=== PATIENT | female | born 1995 | race Caucasian/White ===

== ENCOUNTER 2021-02-07 10:27 | Emergency (ER) | payer OTHER, SELFPAY ==
[2021-02-07 10:44] VITALS: BP 130/78; PULSE 104; RESP 16; TEMP 36.7; O2SAT 99
--- NOTE | 2021-02-07 10:52 | ED.URI ---
HPI - URI/Sore Throat General Chief Complaint: Upper Respiratory Infection Stated Complaint: sore throat, ear pain Time Seen by Provider: 02/07/21 10:52 Source: patient and RN notes reviewed Mode of arrival: ambulatory Limitations: no limitations History of Present Illness HPI Narrative: 26-year-old female presents to the [facility] with complaints of a sore throat and ear pain for the last 5 days. Has taken Claritin No other treatment prior to arrival. States she is approximately 20 weeks . Related Data Allergies Allergy/AdvReac Type Severity Reaction Status Date / Time No Known Allergies Allergy Unverified 06/24/18 16:05 Review of Systems Review of Systems: All systems reviewed & are unremarkable except as noted in HPI and below Constitutional: Constitutional: Reports no additional constitutional complaints, Denies chills and Denies fever(s) Eyes: Eyes: Reports no additional eye complaints and Denies change in vision ENT: Reports as per HPI and Reports sore throat Cardiovascular: Cardiovascular: Reports no additional cardiovascular complaints, Denies chest pain and Denies radiating jaw, neck or arm pain Respiratory: Respiratory: Reports no additional respiratory complaints, Denies cough and Denies dyspnea Gastrointestinal: Gastrointestinal: Reports no additional gastrointestinal complaints, Denies abdominal pain and Denies nausea Genitourinary: Genitourinary: Reports no additional female genitourinary complaints Musculoskeletal: Musculoskeletal: Reports no additional musculoskeletal complaints Integumentary/Breasts: Skin/Breast: Reports system reviewed and no additional complaints, except as docu Neurologic: Reports system reviewed and no additional complaints, except as documented Psychiatric: Psychiatric: Reports no additional psychiatric complaints Allergic/Immunologic: Allergic/Immunologic: Reports no additional allergic/immunologic complaints [facility] Past Medical History Medical History (Updated 02/07/21 @ 19:39 by Tabby Coleman) No significant medical problems Surgical History Surgical History (Updated 02/07/21 @ 19:39 by Tabby Coleman) No significant past surgical history Social History Social History (Updated 02/07/21 @ 19:39 by Tabby Coleman) Living arrangements: with family Gender identity (if verbalized by the patient): Female Comments At the time of my signature, I reviewed and agree with the nursing past medical, surgical, social, and family history. There is no relevant family history pertinent to the patient complaint. Exam Const: General: healthy appearing, no acute distress and alert Nutritional Appearance: well nourished Orientation/consciousness: patient oriented x3 Limitations: no limitations HENMT: Head: normal to inspection Ears: external ears normal, TM's normal bilaterally and EAC's normal General nose exam: Normal external nose present, Normal nares present and Normal nasal mucous membranes and turbinates present Face and sinus: normal facial exam Mouth: Yes moist mucous membranes Throat: posterior oropharynx normal, uvula midline and postnasal drainage Eyes: Conjunctivae: conjunctivae normal Pupils: Equal, round and reactive pupils present Neck: Neck: normal visual inspection, no lymphadenopathy and no meningeal signs Resp: Effort & Inspection: normal respiratory effort Auscultation: clear to auscultation bilaterally Cardio: Rate: regular rate Rhythm: regular rhythm GI: GI Palp: Yes Soft to palpation and No Tenderness to palpation present (GI) : General: Yes no CVA tenderness Back/Spine/Pelvis: Back: no CVA tenderness Skin: General skin exam: normal color Rashes: no rashes Neuro: General: patient oriented x3, moves all extremities, no meningeal signs and no focal motor deficits Cranial nerves: Yes Nystagmus not present Speech: normal speech Gait exam (Neuro): Normal gait present Extrem: General: normal to inspection and no pedal ed
== END 2021-02-07 11:42 | disposition home or self-care (01) ==
PROVIDERS: Emergency Provider Nurse Practitioner
DX: R09.82 Postnasal drip (principal); J02.9 Acute pharyngitis, unspecified
CPT/HCPCS: 87081; 87880; 99213; G0463

== ENCOUNTER 2022-01-04 09:04 | Emergency (ER) | payer OTHER, SELFPAY ==
[2022-01-04 09:06] VITALS: BP 126/73; PULSE 72; RESP 14; TEMP 36.4; O2SAT 100
--- NOTE | 2022-01-04 09:06 | ED.URI ---
HPI - URI/Sore Throat General Stated Complaint: Sore Throat Time Seen by Provider: 01/04/22 09:06 Source: patient Mode of arrival: ambulatory Limitations: no limitations History of Present Illness HPI Narrative: Ms. Dunn is a 26-year-old female patient presenting to the clinic today with complaints of sore throat x1 day. She brought her son into the clinic today and he tested positive for strep pharyngitis. Mother denies any fever at this time. She also reports her other child has a sore throat as well. She is currently -6 to 8 weeks. MD elicited complaint: sore throat Related Data Allergies Allergy/AdvReac Type Severity Reaction Status Date / Time No Known Allergies Allergy Unverified 06/24/18 16:05 Review of Systems Review of Systems: Pertinent positives per HPI. Patient denies any fever, chills, rash, headache, visual changes, dizziness, cough, shortness of breath, chest pain, palpitations, nausea, vomiting, diarrhea, constipation, abdominal pain, or any urinary issues. PMFSH Past Medical History Medical History No significant medical problems Surgical History Surgical History No significant past surgical history Social History Social History Gender identity (if verbalized by the patient): Female Comments At the time of my signature, I reviewed and agree with the nursing past medical, surgical, social, and family history. There is no relevant family history pertinent to the patient complaint. Exam Narrative: General: Well-developed, well nourished, in no apparent distress Head: Normocephalic, atraumatic Eyes: Pupils equally round and reactive to light bilaterally, EOM intact, sclera and conjunctive clear, no discharge, lids normal Ears: TMs intact and clear, ear canals ceruminous, no drainage, grossly hearing normal. Nose: Nares patent, no discharge, no inflammation, no sinus tenderness. Mouth: Oral pharynx without lesions or masses, good dentition, MMM. Oropharynx red Neck: Supple, trachea midline, mild enlargement of anterior cervical nodes, no thyroid masses or goiter palpable. Cardio: Regular rate and rhythm, s1 and s2 normal, no murmur appreciated. Resp: Clear to auscultation bilaterally, no rhonchi, rales, wheezing or rubs Course Course Emergency Course: Portions of this record may have been created with voice recognition software. Level of Care: Express Care Visit Vital Signs Vital signs: Vital signs reviewed MDM - URI/Sore Throat MDM Narrative Medical decision making narrative: At the time of visit patient is resting comfortably on the exam table. She is complaining of sore throat and her oropharynx is red. Son tested positive for strep in the clinic today so I will empirically treat her for strep as well. Prescription for amoxicillin was sent to the pharmacy. She voiced understanding of discharge instructions and agrees to treatment plan Differential Diagnosis Differential diagnosis: Likely upper respiratory infection, otitis media, sinusitis, viral infection, bronchitis, influenza, pharyngitis and other (COVID) Discharge Plan Discharge Clinical Impression: Exposure to group A Streptococcus Pharyngitis Qualifiers: Pharyngitis/tonsillitis etiology: unspecified etiology Qualified Code(s): J02.9 - Acute pharyngitis, unspecified Patient Disposition: Home, Self-Care Condition: Stable Instructions: Antibiotic Form, Pharyngitis (ED) Additional Instructions: Take prescription medications only as prescribed-amoxicillin Increase fluids and stay well hydrated Tylenol for pain/fever Flonase and OTC antihistamines as directed Vicks vapor rub to open sinuses Sinus rinses for congestion Cepacol spray, cough drops, throat lozenges, warm tea with honey/lemon, gargle salt wa
== END 2022-01-04 09:20 | disposition home or self-care (01) ==
PROVIDERS: Emergency Provider Nurse Practitioner Family
DX: J02.9 Acute pharyngitis, unspecified (principal); Z20.818 Contact with and (suspected) exposure to other bacterial communicable diseases
CPT/HCPCS: 99213; G0463

== ENCOUNTER 2022-02-03 12:35 | Emergency (ER) | payer OTHER, SELFPAY ==
[2022-02-03 12:40] VITALS: BP 116/76; PULSE 86; RESP 14; TEMP 36.6; O2SAT 100
--- NOTE | 2022-02-03 13:00 | ED.URI ---
HPI - URI/Sore Throat General Chief Complaint: Upper Respiratory Infection Stated Complaint: Sore Throat Time Seen by Provider: 02/03/22 13:00 History of Present Illness HPI Narrative: Patient presents with burning with urination. Patient also has a sore throat and states both of her children at home are positive for strep. Patient has no fever no trouble swallowing. Patient is 3 months and denies any vaginal discharge, no vaginal bleeding, no abdominal pain no pelvic pain. Patient states she has normal movement and no -related issues. Related Data Home Medications Medication Instructions Recorded Confirmed vitamin-ferrous fumarate 1 tablet PO DAILY 02/03/22 02/03/22 28 mg iron-folic acid 800 mcg tablet ( Tablet) Allergies Allergy/AdvReac Type Severity Reaction Status Date / Time No Known Allergies Allergy Verified 02/03/22 12:55 Review of Systems Review of Systems: CONSTITUTIONAL: Denies fever, chills, or sweats. EYES: Denies visual changes, redness, or discharge. ENT: Denies rhinorrhea, congestion, sore throat, or otalgia. CARDIOVASCULAR: Denies chest pain, palpitations, or edema. RESPIRATORY: Denies cough or dyspnea. GASTROINTESTINAL: Denies abdominal pain, nausea, vomiting, or diarrhea. GENITOURINARY: Denies dysuria or hematuria. SKIN: Denies rash or itching. MUSCULOSKELETAL: Denies back pain, joint pain, or myalgia. NEUROLOGIC: Denies headache, numbness, or weakness. PSYCHIATRIC: Denies anxiety or depression. PMFSH Past Medical History Medical History No significant medical problems Surgical History Surgical History No significant past surgical history Social History Social History Gender identity (if verbalized by the patient): Female Comments At time of signature, agree with nursing past medical, surgical, social and family history. There is no relevant family history pertinent to the presenting complaint Exam Narrative: The patient is a well-developed, well-nourished in no acute distress. SKIN: Skin is warm and dry without erythema, swelling or exudate. There is good turgor. No tenting. HEAD: Atraumatic. Normocephalic. No temporal or scalp tenderness. EYES: Moist and bright. Sclera and conjunctivae normal. No discharge. PERRLA. Extraocular motions intact. Gross visual acuity intact. EARS: Pinna is normal shape and contour. Clear external auditory canals. TM pearly cadet with good cone of light, no erythema or suppuration. Bilateral cerumen noted no gross hearing deficit. NOSE: pink, moist mucosa with good air movement. Clear rhinorrhea without nasal flaring. Septum midline. Mouth: moist mucous membranes. THROAT; mild erythema noted to posterior oropharynx with moderate postnasal drainage. Without exudate or ulceration.. Uvula midline. Normal movement of soft palate. NECK: Supple and nontender with full range of motion without discomfort. No meningeal signs. LUNGS: Equal and bilateral breath sounds without wheezes, rales or rhonchi. CHEST: The chest wall is without retractions or use of accessory muscles. HEART: Has a regular rate and rhythm without murmur, gallops, click or rub. ABDOMEN: Soft, nontender with positive active bowel sounds. No rebound tenderness. EXTREMITIES: Without cyanosis, clubbing or edema. Equal 2+ distal pulses and 2 second capillary refill noted. NEUROLOGIC: alert, active, . The patient moves all extremities with normal muscle strength. Normal muscle tone is noted. Normal coordination is noted. NO focal neurological findings noted. Course Course Level of Care: Express Care Visit Vital Signs Vital signs: Vital Signs Temperature 36.6 C 02/03/22 12:40 Pulse Rate 86 02/03/22 12:40 Respiratory Rate 14 02/03/22 12:40 Blood Pressure 116/7
== END 2022-02-03 13:08 | disposition home or self-care (01) ==
PROVIDERS: Emergency Provider Nurse Practitioner Family
DX: O99.511 Diseases of the respiratory system complicating pregnancy, first trimester (principal); Z3A.12 12 weeks gestation of pregnancy; J02.9 Acute pharyngitis, unspecified; O99.891 Other specified diseases and conditions complicating pregnancy; R30.0 Dysuria; Z20.818 Contact with and (suspected) exposure to other bacterial communicable diseases
CPT/HCPCS: 81003; 87081; 87086; 87880; 99213; G0463

== ENCOUNTER 2022-05-16 09:47 | Emergency (ER) | payer OTHER, SELFPAY ==
--- NOTE | 2022-05-16 10:01 | ED.URI ---
HPI - URI/Sore Throat General Chief Complaint: Upper Respiratory Infection Stated Complaint: Sore Throat/Cough Time Seen by Provider: 05/16/22 10:01 Source: patient and RN notes reviewed History of Present Illness HPI Narrative: Patient is a 27-year-old female presents to urgent care with complaints of sore throat, cough, runny nose and ear pressure. Patient states it started yesterday and her son at home is positive for strep throat. Patient is 30 weeks . Denies any fever, nausea or vomiting. The patient is not taking anything [id number] for her symptoms. No other acute complaints. No acute distress noted. Patient aware of the plan of care. Some parts of this dictation were generated by voice recognition software and may contain typographical and/or grammatical inaccuracies. Related Data Allergies Allergy/AdvReac Type Severity Reaction Status Date / Time No Known Allergies Allergy Verified 05/16/22 10:03 Review of Systems Review of Systems: CONSTITUTIONAL: Denies fever, chills, or sweats. EYES: Denies visual changes, redness, or discharge. ENT: Reports congestion, rhinorrhea, sore throat bilateral otalgia CARDIOVASCULAR: Denies chest pain, palpitations, or edema. RESPIRATORY: Reports mild cough without dyspnea GASTROINTESTINAL: Denies abdominal pain, nausea, vomiting, or diarrhea. GENITOURINARY: Denies dysuria or hematuria. SKIN: Denies rash or itching. MUSCULOSKELETAL: Denies back pain, joint pain, or myalgia. NEUROLOGIC: Denies headache, numbness, or weakness. All other systems reviewed are negative, except as documented in HPI. [facility] Past Medical History Medical History No significant medical problems Surgical History Surgical History No significant past surgical history Social History Social History Living arrangements: with family Gender identity (if verbalized by the patient): Female Comments At the time of my signature, I reviewed and agree with the nursing past medical, surgical, social, and family history. There is no relevant family history pertinent to the patient complaint. Exam Narrative: GENERAL: This is a well-nourished, well-developed patient, in no apparent distress. HEAD: normocephalic, atraumatic. EYES: PERRL. Sclera clear/white. Vision is grossly intact. EARS: External ears normal, auditory canals clear and without drainage, TMs normal without perforation. Hearing grossly intact. NOSE: External nose normal with no obvious nasal discharge, nares without redness, clear rhinorrhea. THROAT: Mucous membranes moist, posterior pharynx clear. Moderate postnasal drainage NECK: Neck supple, non-tender without lymphadenopathy CARDIOVASCULAR: Regular rate and rhythm RESPIRATORY: Clear to auscultation. Breath sounds equal bilaterally. No wheezes, rales, or rhonchi. SKIN: warm, intact with no suspicious lesions or rash, good texture and turgor. NEURO: awake, alert, and oriented to person, place and time. There were no obvious focal neurologic abnormalities. EXTREMITIES: No clubbing, cyanosis, or edema. Course Course Level of Care: Express Care Visit Vital Signs Vital signs: Vital Signs Temperature 98.1 F 05/16/22 10:05 Pulse Rate 96 05/16/22 10:05 Respiratory Rate 18 05/16/22 10:05 Blood Pressure 135/74 05/16/22 10:05 Pulse Oximetry 100 05/16/22 10:05 Oxygen Delivery Room Air 05/16/22 10:05 Temperature 98.1 F 05/16/22 10:05 Pulse Rate 96 05/16/22 10:05 Respiratory Rate 18 05/16/22 10:05 Blood Pressure 135/74 05/16/22 10:05 Pulse Oximetry 100 05/16/22 10:05 Oxygen Delivery Room Air 05/16/22 10:05 Reviewed MDM - URI/Sore Throat MDM Narrative Medical decision making narrative: Reviewed lab results with the patient. She is aware that her strep swa
[2022-05-16 10:05] VITALS: BP 135/74; PULSE 96; RESP 18; TEMP 36.7; O2SAT 100
== END 2022-05-16 10:56 | disposition home or self-care (01) ==
PROVIDERS: Emergency Provider Nurse Practitioner Family; PCP Family Medicine
DX: O99.513 Diseases of the respiratory system complicating pregnancy, third trimester (principal); J02.9 Acute pharyngitis, unspecified; Z3A.30 30 weeks gestation of pregnancy
CPT/HCPCS: 87081; 87880; 99213; G0463

== ENCOUNTER 2022-10-20 18:18 | Emergency (ER) | payer OTHER, SELFPAY ==
[2022-10-20 18:26] VITALS: BP 126/85; PULSE 71; RESP 16; TEMP 36.2; O2SAT 100
--- NOTE | 2022-10-20 18:31 | ED.URI ---
HPI - URI/Sore Throat General Chief Complaint: Upper Respiratory Infection Stated Complaint: Sore Throat History of Present Illness HPI Narrative: Patient presents with a sore throat for the past month. Patient denies any trouble swallowing no drooling no exposure Related Data Allergies Allergy/AdvReac Type Severity Reaction Status Date / Time No Known Allergies Allergy Verified 10/20/22 18:20 Review of Systems Review of Systems: CONSTITUTIONAL: Denies chills, or sweats. Reports fever and generalized body aches EYES: Denies visual changes, redness, or discharge. ENT: Denies otalgia. Reports nasal congestion runny nose and sore throat CARDIOVASCULAR: Denies chest pain, palpitations, or edema. RESPIRATORY: Denies dyspnea. Reports occasional cough GASTROINTESTINAL: Denies abdominal pain, nausea, vomiting, or diarrhea. GENITOURINARY: Denies dysuria or hematuria. SKIN: Denies rash or itching. MUSCULOSKELETAL: Denies back pain, joint pain, or myalgia. Reports generalized body aches NEUROLOGIC: Denies headache, numbness, or weakness. PSYCHIATRIC: Denies anxiety or depression. [facility] Past Medical History Medical History No significant medical problems Surgical History Surgical History No significant past surgical history Social History Social History Living arrangements: with family Gender identity (if verbalized by the patient): Female Comments At time of signature, agree with nursing past medical, surgical, social and family history. There is no relevant family history pertinent to the presenting complaint Exam Narrative: The patient is a well-developed, well-nourished in no acute distress. SKIN: Skin is warm and dry without erythema, swelling or exudate. There is good turgor. No tenting. HEAD: Atraumatic. Normocephalic. No temporal or scalp tenderness. EYES: Moist and bright. Sclera and conjunctivae normal. No discharge. PERRLA. Extraocular motions intact. Gross visual acuity intact. EARS: Pinna is normal shape and contour. Clear external auditory canals. TM pearly cadet with good cone of light, no erythema or suppuration. Bilateral cerumen noted no gross hearing deficit. NOSE: pink, moist mucosa with good air movement. Clear rhinorrhea without nasal flaring. Septum midline. Mouth: moist mucous membranes. THROAT; mild erythema noted to posterior oropharynx with moderate postnasal drainage. With right tonsillar exudate no ulceration.. Uvula midline. Normal movement of soft palate. NECK: Supple and nontender with full range of motion without discomfort. No meningeal signs. LUNGS: Equal and bilateral breath sounds without wheezes, rales or rhonchi. CHEST: The chest wall is without retractions or use of accessory muscles. HEART: Has a regular rate and rhythm without murmur, gallops, click or rub. ABDOMEN: Soft, nontender with positive active bowel sounds. No rebound tenderness. EXTREMITIES: Without cyanosis, clubbing or edema. Equal 2+ distal pulses and 2 second capillary refill noted. NEUROLOGIC: alert, active, . The patient moves all extremities with normal muscle strength. Normal muscle tone is noted. Normal coordination is noted. NO focal neurological findings noted. Course Course Level of Care: Express Care Visit Vital Signs Vital signs: Vital Signs Temperature 36.2 C L 10/20/22 18:26 Pulse Rate 71 10/20/22 18:26 Respiratory Rate 16 10/20/22 18:26 Blood Pressure 126/85 10/20/22 18:26 Pulse Oximetry 100 10/20/22 18:26 Oxygen Delivery Room Air 10/20/22 18:26 Temperature 36.2 C L 10/20/22 18:26 Pulse Rate 71 10/20/22 18:26 Respiratory Rate 16 10/20/22 18:26 Blood Pressure 126/85 10/20/22 18:26 Pulse Oximetry 100 10/20/22 18:26 Oxygen Delivery Room Air 10/20/22 18:26 Disc
== END 2022-10-20 18:37 | disposition home or self-care (01) ==
PROVIDERS: Emergency Provider Nurse Practitioner Family
DX: J02.9 Acute pharyngitis, unspecified (principal); J35.8 Other chronic diseases of tonsils and adenoids
CPT/HCPCS: 87880; 99213; G0463

== ENCOUNTER 2023-01-05 12:34 | Emergency (ER) | payer OTHER, SELFPAY ==
--- NOTE | ~2023-01-05 | XR_ITS ---
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 BACK PAIN. . COMPARISON: None available. FINDINGS: Craniocervical association and atlantoaxial joint are aligned. No prevertebral soft tissue swelling. 2 mm anterolisthesis at C2-3. Reversed lordosis. Vertebral body heights are maintained. No rmal disc spaces. Normal facets and posterior elements. IMPRESSION: 2 mm anterolisthesis at C2-3. Reversed lordosis, which can occur with positioning or muscle spasm. Reviewed, dictated and finalized at location K.
--- NOTE | ~2023-01-05 | XR_ITS ---
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 . COMPARISON: None available. FINDINGS: Vertebral body alignment intact. Vertebral body heights preserved. No disc space narrowing . No traumatic malalignment or fracture. Visualized lung parenchyma is clear. IMPRESSION: No acute fracture or traumatic malalignment detected in the thoracic spine. Reviewed, dictated and finalized at location K. IMPRESSION: No acute fracture or traumatic malalignment detected in the thoraci c spine.
[2023-01-05 12:52] VITALS: BP 135/80; PULSE 114; RESP 20; TEMP 37.1; O2SAT 100
--- NOTE | 2023-01-05 13:42 | ED.FALL ---
HPI - Fall General Chief Complaint: Fall Stated Complaint: big knot in the back of throat Time Seen by Provider: 01/05/23 13:42 Source: patient, RN notes reviewed and old records reviewed Mode of arrival: ambulatory Limitations: no limitations History of Present Illness HPI Narrative: 27 year old female who presents to [facility] with complaints of having headaches and cough for the past 4 days with throat feeling like dry like cotton balls in throat, denies any fevers, chills, or body aches. Patient reports that she works as business support specialist and she fell falling in the aisle on the bus while it was moving and has some pain to the base of her neck down to thoracic spine, Patient reports that she has to walk around in bus while moving and has had several falls due to bus breaking since going back to school in October. Patient denies hitting her head or any LOC. MD complaint: fall and other (cough,headache and dry throat feels like cotton balls stuck in throat.) Onset (ago): day(s) (4) Fall from: standing Fall witnessed: yes, by bystander Place fall occurred: work (business support specialist) Loss of consciousness: none Location of injury: other (posterior neck and thoracic back area.) Related Data Allergies Allergy/AdvReac Type Severity Reaction Status Date / Time No Known Allergies Allergy Verified 01/05/23 13:09 Review of Systems Review of Systems: CONSTITUTIONAL: Denies fever, chills, or sweats. EYES: Denies visual changes, redness, or discharge. ENT: Denies rhinorrhea, congestion, positive for sore throat, no otalgia. CARDIOVASCULAR: Denies chest pain, palpitations, or edema. RESPIRATORY:Reports cough denies dyspnea. GASTROINTESTINAL: Denies abdominal pain, nausea, vomiting, or diarrhea. GENITOURINARY: Denies dysuria or hematuria. SKIN: Denies rash or itching. MUSCULOSKELETAL: reports posterior neck pain down to thoracic back area from fall,no joint pain, or myalgia. NEUROLOGIC: reports headache,no numbness, or weakness. PSYCHIATRIC: Reports history anxiety or depression. All systems reviewed & are unremarkable except as noted in HPI and below PMFSH Past Medical History Medical History (Updated 01/07/23 @ 10:28 by Dinora Medeiros NP) depression Strep throat Surgical History Surgical History (Updated 01/07/23 @ 10:25 by Dinora Medeiros NP) Previous section Social History Social History (Updated 01/07/23 @ 10:25 by Dinora Medeiros NP) Smoking status: Never smoker Substance use type: does not use Living arrangements: with family Gender identity (if verbalized by the patient): Female Comments At time of signature, agree with nursing past medical, surgical, social and family history. There is no relevant family history pertinent to the presenting complaint Exam Narrative: GENERAL: Well-appearing, well-nourished, and in no acute distress. HEAD: Normocephalic, atraumatic. EYES: PERRLA and EOMI ENT: Nares clear, clear rhinorrhea or epistaxis. Mucous membranes moist.TM's normal, throat red with no lesions, no tonsil enlargement, NECK: Supple. no lymphadenopathy CHEST: Clear to auscultation. No respiratory distress. cough noted,SAO2 100% on room air HEART: Regular rate and rhythm. No murmur heard. Normal peripheral pulses. ABDOMEN: Soft, nontender, nondistended, normal active bowel sounds. EXTREMITIES: Normal range of motion. No edema. Pain at base of neck on left side on palpation, full mobility of neck with no pain or any tingling or numbness to arms, reports pain radiates down to end of thoracic area of back, patient has strong pulses to arms and legs. SKIN: Warm, dry, no rash. NEURO: No focal deficits. Alert and oriented x3. Course Course Emergency Course: Patient is aware of diagnosis, understands and agrees to treatment plan.? Anticipatory guidance given.? Patient agrees to follow-up as directed and is aware of reasons to seek care at the emergency department. Portions of this rec
== END 2023-01-05 15:08 | disposition home or self-care (01) ==
PROVIDERS: Emergency Provider Registered Nurse
DX: M54.2 Cervicalgia (principal); J06.9 Acute upper respiratory infection, unspecified; R05.9 Cough, unspecified
CPT/HCPCS: 72040; 72072; 87081; 87880; 99213; G0463

== ENCOUNTER 2023-04-22 08:36 | Emergency (ER) | payer OTHER, SELFPAY ==
[2023-04-22 08:44] VITALS: BP 130/86; PULSE 91; RESP 20; TEMP 36.6; O2SAT 100
--- NOTE | 2023-04-22 08:46 | ED.GENADULT ---
HPI - General Adult General Chief complaint: Upper Respiratory Infection Stated complaint: throat Source: patient, RN notes reviewed and old records reviewed Mode of arrival: ambulatory Limitations: no limitations History of Present Illness HPI narrative: 28-year-old female presents to [facility] with complaint of sore throat this started last p.m.. Patient worried because son has strep throat. Patient denies any other symptoms. MD complaint: sore throat Onset (ago): day(s) (1) Severity: moderate Pain Consistency: constant Relieving factors: none Exacerbating factors: none Treatments prior to arrival: none Related Data Allergies Allergy/AdvReac Type Severity Reaction Status Date / Time No Known Allergies Allergy Verified 01/05/23 13:09 Review of Systems Constitutional: Constitutional: Reports no additional constitutional complaints, Denies body ache(s), Denies chills, Denies fatigue, Denies fever(s) and Denies headache(s) Eyes: Eyes: Reports no additional eye complaints and Denies blurry vision ENT: Reports system reviewed and no additional complaints, except as documented, Denies vertigo, Denies dizziness, Denies ear discharge, Denies otalgia, Denies facial pain, Denies headache(s), Denies nasal congestion, Denies nasal discharge, Denies sinus pain, Denies sinus pressure and Reports sore throat Cardiovascular: Cardiovascular: Reports no additional cardiovascular complaints, Denies chest pain, Denies chest pain at rest, Denies rapid heart rate and Denies dyspnea Respiratory: Respiratory: Reports no additional respiratory complaints, Denies chest congestion, Denies cough, Denies pain on inspiration, Denies pain with cough and Denies dyspnea Gastrointestinal: Gastrointestinal: Denies abdominal pain, Denies diarrhea, Denies nausea and Denies vomiting Integumentary/Breasts: Skin/Breast: Denies rash Neurologic: Reports system reviewed and no additional complaints, except as documented, Denies vertigo, Denies dizziness and Denies headache(s) Endocrine: Endocrine: Denies fatigue PMFSH Past Medical History Medical History depression Strep throat Surgical History Surgical History Previous section Social History Social History Smoking status: Never smoker Substance use type: does not use Living arrangements: with family Gender identity (if verbalized by the patient): Female Comments At the time of my signature, I reviewed and agree with the nursing past medical, surgical, social, and family history. There is no relevant family history pertinent to the patient complaint. Exam Const: General: cooperative, healthy appearing, no acute distress and well nourished Nutritional Appearance: well nourished Orientation/consciousness: patient oriented x3 Limitations: no limitations HENMT: Head: normal to inspection and normocephalic Ears: external ears normal, TM's normal bilaterally, mastoids normal and Abnormal EAC present Face/Nose/Sinus: normal facial exam Face and sinus: normal facial exam Mouth: Yes Normal oral and palatal mucosa present, Yes oropharynx normal and Yes moist mucous membranes Throat: tonsils normal, uvula midline, posterior oropharynx abnormal erythema and no uvular edema Eyes: General: appearance normal, both eyes and all related structures Sclera: sclerae normal Pupils: Equal, round and reactive pupils present Resp: Effort & Inspection: normal respiratory effort, able to speak in complete sentences, no audible wheezes, no cough, no respiratory distress and no retractions Auscultation: clear to auscultation bilaterally, no crackles, no rales, no rhonchi and no wheezes Cardio: Rate: regular rate Rhythm: regular rhythm Skin: General skin exam: normal color and no rashes or lesions noted Neuro: General: p
== END 2023-04-22 09:14 | disposition home or self-care (01) ==
PROVIDERS: Emergency Provider Registered Nurse
DX: J02.0 Streptococcal pharyngitis (principal)
CPT/HCPCS: 87880; 99213; G0463

== ENCOUNTER 2023-08-11 10:24 | Emergency (ER) | payer OTHER, SELFPAY ==
[2023-08-11 10:40] VITALS: BP 117/76; PULSE 72; RESP 20; TEMP 36.8; O2SAT 99
--- NOTE | 2023-08-11 11:02 | ED.GENADULT ---
HPI - General Adult General Chief complaint: Upper Respiratory Infection Stated complaint: Sore Throat Time Seen by Provider: 08/11/23 10:50 Source: patient, RN notes reviewed and old records reviewed Mode of arrival: ambulatory Limitations: no limitations History of Present Illness HPI narrative: 28 year old female who presents to [facility] care with complaints of sore throat which started last night for which she has been using salt water gargels. Patient admits to some nasal congestion and some drainage, denies any ear pain or cough or any associated fevers.Patient reports no body aches. MD complaint: sore throat Onset (ago): day(s) (last night) Severity scale (1-10): 3 Treatments prior to arrival: none Related Data Allergies Allergy/AdvReac Type Severity Reaction Status Date / Time No Known Allergies Allergy Verified 08/11/23 11:06 Review of Systems Review of Systems: CONSTITUTIONAL: Denies malaise, chills, sweats, or fever. EYES: Denies visual changes, redness, or discharge. ENT: Reports rhinorrhea, congestion, no sinus pain,no otalgia and positive for sore throat. CARDIOVASCULAR: Denies chest pain, palpitations, or edema. RESPIRATORY: Reports no cough.? Denies dyspnea. GASTROINTESTINAL: Denies abdominal pain, nausea, vomiting, diarrhea SKIN: Denies rash or itching. MUSCULOSKELETAL: Denies myalgia. NEUROLOGIC: Denies headache. All systems reviewed & are unremarkable except as noted in HPI and below PMFSH Past Medical History Medical History depression Strep throat Surgical History Surgical History Previous section Social History Social History Smoking status: Never smoker Substance use type: does not use Living arrangements: with family Gender identity (if verbalized by the patient): Female Comments At time of signature, agree with nursing past medical, surgical, social and family history. There is no relevant family history pertinent to the presenting complaint Exam Narrative: GENERAL: Well-appearing, well-nourished, and in no acute distress. HEAD: Normocephalic EYES: PERRLA, conjunctivae clear ENT: Nares clear, turbinates edematous and erythematous, clear discharge. Mucous membranes moist. TM pearly doherty with dull light reflex bilaterally; no tragal tenderness. Oropharynx erythematous without lesions. Tonsils not enlarged and without exudate, no drooling, no hoarseness, no trismus, uvula midline.post nasal drainage noted NECK: Supple. No lymphadenopathy CHEST: Clear to auscultation, breath sounds equal. No wheezing, rhonchi, rales, or stridor. No respiratory distress, speaks in full sentences.no cough noted, SAO2 99% on room air HEART: Regular rate and rhythm. No murmur heard. SKIN: Warm, dry, no rash. NEURO: Alert and oriented x3. PSYCH: Normal mood and affect Course Course Emergency Course: Patient is aware of diagnosis, understands and agrees to treatment plan.? Anticipatory guidance given.? Patient agrees to follow-up as directed and is aware of reasons to seek care at the emergency department. Portions of this record may have been created with voice recognition software Level of Care: Express Care Visit Vital Signs Vital signs: Vital Signs Temperature 36.8 C 08/11/23 10:40 Pulse Rate 72 08/11/23 10:40 Respiratory Rate 20 08/11/23 10:40 Blood Pressure 117/76 08/11/23 10:40 Pulse Oximetry 99 08/11/23 10:40 Oxygen Delivery Room Air 08/11/23 10:40 Temperature 36.8 C 08/11/23 10:40 Pulse Rate 72 08/11/23 10:40 Respiratory Rate 20 08/11/23 10:40 Blood Pressure 117/76 08/11/23 10:40 Pulse Oximetry 99 08/11/23 10:40 Oxygen Delivery Room Air 08/11/23 10:40 Reviewed Medical Decision Making Differential Diagnosis Diff
== END 2023-08-11 11:20 | disposition home or self-care (01) ==
PROVIDERS: Emergency Provider Registered Nurse
DX: J01.90 Acute sinusitis, unspecified (principal); J02.9 Acute pharyngitis, unspecified
CPT/HCPCS: 87081; 87880; 99213; G0463

== ENCOUNTER 2023-11-16 10:48 | Emergency (ER) | payer OTHER, SELFPAY ==
[2023-11-16 10:53] VITALS: BP 134/98; PULSE 88; RESP 16; TEMP 37.2; O2SAT 99
--- NOTE | 2023-11-16 10:56 | PC.NURSE ---
in br to obtain ua spec..
--- NOTE | 2023-11-16 10:57 | ED.GENADULT ---
HPI - General Adult General Chief complaint: Urogenital-Female Stated complaint: Urinary Problem Time Seen by Provider: 11/16/23 10:57 Source: patient, RN notes reviewed and old records reviewed Mode of arrival: ambulatory Limitations: no limitations History of Present Illness HPI narrative: 28-year-old female to Express Care complaint urinary frequency, urgency, pain with urination that started this morning. Patient denies back pain, flank pain, abdominal pain, fever, nausea, bowel changes, allergies, pertinent medical history. Patient able to tolerate fluids by mouth. Patient resting in exam room in no acute distress. Respirations even and nonlabored. Related Data Allergies Allergy/AdvReac Type Severity Reaction Status Date / Time No Known Allergies Allergy Verified 11/16/23 10:54 Review of Systems Review of Systems: All systems reviewed & are unremarkable except as noted in HPI and below Constitutional: Constitutional: Reports no additional constitutional complaints Eyes: Eyes: Reports no additional eye complaints ENT: Reports system reviewed and no additional complaints, except as documented Cardiovascular: Cardiovascular: Reports no additional cardiovascular complaints, Denies chest pain and Denies dyspnea Respiratory: Respiratory: Reports no additional respiratory complaints, Denies cough and Denies dyspnea Genitourinary: Genitourinary: Reports as per HPI, Reports nocturia, Reports dysuria and Reports urinary urgency Musculoskeletal: Musculoskeletal: Reports no additional musculoskeletal complaints Neurologic: Reports system reviewed and no additional complaints, except as documented Psychiatric: Psychiatric: Reports no additional psychiatric complaints PMFSH Past Medical History Medical History depression Strep throat Surgical History Surgical History Previous section Social History Social History Smoking status: Never smoker Substance use type: does not use Living arrangements: with family Gender identity (if verbalized by the patient): Female Comments At the time of my signature, I reviewed and agree with the nursing past medical, surgical, social, and family history. There is no relevant family history pertinent to the patient complaint. Exam Const: General: cooperative, healthy appearing, comfortable, no acute distress, alert and well nourished Nutritional Appearance: well nourished Orientation/consciousness: patient oriented x3 Limitations: no limitations HENMT: Head: normal to inspection Ears: external ears normal Face/Nose/Sinus: Normal external nose present, Normal nares present, normal facial exam, No erythema and No edema Face and sinus: normal facial exam, no erythema and no edema Mouth: Yes Normal oral and palatal mucosa present Eyes: General: appearance normal, both eyes and all related structures Neck: Neck: normal visual inspection, full ROM and no meningeal signs Lymphatic: no lymphadenopathy noted and no lymphedema noted Chest: Chest palpation & inspection: normal inspection of the chest Resp: Effort & Inspection: normal respiratory effort and able to speak in complete sentences Auscultation: clear to auscultation bilaterally Cardio: Jugular venous distension: no JVD Rate: regular rate Rhythm: regular rhythm : General: Yes no CVA tenderness Back/Spine/Pelvis: Cervical Spine: cervical ROM normal Skin: General skin exam: normal color, no rashes or lesions noted and turgor normal Neuro: General: patient oriented x3, gait normal, moves all extremities and no meningeal signs Speech: normal speech Gait exam (Neuro): Normal gait present Extrem: General: normal to inspection, full ROM and capillary refill normal Psych: Appearance: grossly normal and well ke
[2023-11-16 11:07] LABS: EDUAAPPEAR Cloudy; EDUABILI Negative; EDUABLOOD 3+; EDUACOLOR1 Tea Colored; EDUAGLUCOSE Negative; EDUAKETONE Negative; EDUALEUKO 1+; EDUANITRATE Positive; EDUAPROTEIN 2+; EDUAUROBILI 0.2
== END 2023-11-16 11:20 | disposition home or self-care (01) ==
PROVIDERS: Emergency Provider Nurse Practitioner Family
DX: N39.0 Urinary tract infection, site not specified (principal); B96.20 Unspecified Escherichia coli [E. coli] as the cause of diseases classified elsewhere
CPT/HCPCS: 81003; 87077; 87086; 87088; 87186; 99213; G0463

== ENCOUNTER 2023-12-26 08:50 | Emergency (ER) | payer OTHER, SELFPAY ==
[2023-12-26 09:16] VITALS: BP 119/73; PULSE 92; RESP 20; TEMP 36.6; O2SAT 100
--- NOTE | 2023-12-26 09:43 | ED.URI ---
HPI - URI/Sore Throat General Chief Complaint: Upper Respiratory Infection Stated Complaint: sorethroat Time Seen by Provider: 12/26/23 09:43 Source: patient, RN notes reviewed and old records reviewed Mode of arrival: ambulatory Limitations: no limitations History of Present Illness HPI Narrative: [age] year female to Express Care with complaint of cough, sore throat, nasal congestion, runny nose for 3 days. Patient reports is currently being treated for strep throat. Patient denies difficulty swallowing, shortness of breath, cough, allergies, pertinent medical history. Patient resting in exam room in no acute distress. Related Data Home Medications Medication Instructions Recorded Confirmed No Home Medications 12/26/23 12/26/23 Allergies Allergy/AdvReac Type Severity Reaction Status Date / Time No Known Allergies Allergy Verified 12/26/23 09:38 Review of Systems Review of Systems: All systems reviewed & are unremarkable except as noted in HPI and below Constitutional: Constitutional: Reports no additional constitutional complaints Eyes: Eyes: Reports no additional eye complaints ENT: Reports as per HPI, Reports nasal congestion, Reports nasal discharge and Reports sore throat Cardiovascular: Cardiovascular: Reports no additional cardiovascular complaints, Denies chest pain and Denies dyspnea Respiratory: Respiratory: Reports no additional respiratory complaints, Reports cough and Denies dyspnea Musculoskeletal: Musculoskeletal: Reports no additional musculoskeletal complaints Neurologic: Reports system reviewed and no additional complaints, except as documented Psychiatric: Psychiatric: Reports no additional psychiatric complaints PMFSH Past Medical History Medical History depression Strep throat Surgical History Surgical History Previous section Social History Social History Smoking status: Never smoker Substance use type: does not use Living arrangements: with family Gender identity (if verbalized by the patient): Female Comments At the time of my signature, I reviewed and agree with the nursing past medical, surgical, social, and family history. There is no relevant family history pertinent to the patient complaint. Exam Const: General: cooperative, healthy appearing, comfortable, no acute distress, alert and well nourished Nutritional Appearance: well nourished Orientation/consciousness: patient oriented x3 Limitations: no limitations HENMT: Head: normal to inspection Ears: external ears normal Face/Nose/Sinus: Normal external nose present, Normal nares present, normal facial exam, No erythema and No edema Face and sinus: normal facial exam, no erythema and no edema Mouth: Yes Normal oral and palatal mucosa present Eyes: General: appearance normal, both eyes and all related structures Neck: Neck: normal visual inspection, full ROM and no meningeal signs Lymphatic: no lymphadenopathy noted and no lymphedema noted Chest: Chest palpation & inspection: normal inspection of the chest Resp: Effort & Inspection: normal respiratory effort and able to speak in complete sentences Auscultation: clear to auscultation bilaterally Cardio: Jugular venous distension: no JVD Rate: regular rate Rhythm: regular rhythm Back/Spine/Pelvis: Cervical Spine: cervical ROM normal Skin: General skin exam: normal color, no rashes or lesions noted and turgor normal Neuro: General: patient oriented x3, gait normal, moves all extremities and no meningeal signs Speech: normal speech Gait exam (Neuro): Normal gait present Extrem: General: normal to inspection, full ROM and capillary refill normal Psych: Appearance: grossly normal and well kempt Course Course Emergency Course:
[2023-12-26 09:57] LABS: EDSTREPNEGPOS1 Negative (Negative)
== END 2023-12-26 10:05 | disposition home or self-care (01) ==
PROVIDERS: Emergency Provider Nurse Practitioner Family
DX: J06.9 Acute upper respiratory infection, unspecified (principal)
CPT/HCPCS: 87081; 87880; 99213; G0463

== ENCOUNTER 2024-09-22 12:26 | Emergency (ER) | payer MEDICAID, SELFPAY ==
--- OUTSIDE RECORDS SUMMARY | 2024-09-22 12:29 | XMS_ITS | Clinical Summary ---
Author Organization [facility] Address [address] [place] [address] Care Team Providers Care Candy Cutter Machine Name Role Phone Unavailable Primary Care Provider Unavailabl e Source Comments [facility],non-owned Affiliates and Associated Physician Practices is amultiple site organization consisting of ambulatory clinics and hospital sitesin [place], [place], [place] and [place]. This disclosure is being madepursuant to the Care Everywhere program and may not contain all information available regarding this patient. Last updated 17.[facility] Allergies No known active allergies Active Problems Patient Care Coordination No te Formatting of this note migh t be different from the original. 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 10/14/2015 Supervision of [facility] risk [facility] 10/14/2015 Social History Tobacco Use Types Packs/Day Years Used Date Smoking Tobacco: Never Assessed Comments No Sex and Gender Information Value Date Recorded Sex Assigned at Not on file Legal Sex Female 2:15 PM CDT Gender Identity Not on file Sexual Orientation Not on file Last Filed Vital Signs Vital Sign Reading Time Taken Comments Blood Pressure 110/78 08/05/2012 4:13 PM CDT Pulse 78 08/05/2012 6:35 PM CDT Temperature 37 C (98.6 F) 08/05/2012 6:35 PM CDT Respiratory Rate 16 08/05/2012 6:35 PM CDT Oxygen Saturation - - Inhaled Oxygen Concentration - - Weight 53.7 kg (118 lb 6.2 oz) 08/05/2012 4:13 P M CDT Height - - Body Mass Index - - Plan of Treatment Health Maintenance Due Date Last Done Comments HIV SCREENING 2010 HEPATITIS C SCREENING 01/02/2013 DTAP/TDAP/TD VACCINES (1 - Tdap) 2014 HEPATITIS B VACCINE (1 of 3 - 19+ 3-dose series) 2014 COVID-19 VACCINE (1 - 2023-2 5 season) 2023 DEPRESSION SCREENING 03/18/2024 INFLUENZA VACCINE (Season Ended) 2024 ZOSTER VACCINE (1 of 2) 2045 HIB VACCINE Aged Out No longer eligi ble based on patient's age to complete this topic HPV VACCINE Aged Out No longer eligi ble based on patient's age to complete this topic MENINGOCOCCAL (Group B) VACC INE SHARED DECISION-MAKING Aged Out No longer eligibl e based on patient's age to complete this topic MENINGOCOCCAL GROUPS A/C/Y/W VACCINE Aged Out No longer eligible b ased on patient's age to complete this topic PNEUMOCOCCAL VACCINE Aged Out No long er eligible based on patient's age to complete this topic Insurance [place] [address] [employer]
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
--- OUTSIDE RECORDS SUMMARY | 2024-09-22 12:29 | XMS_ITS | Clinical Summary ---
Author Organization [facility] Address [address] [place] [address] Care Team Providers Care Medical Case Worker Name Role Phone No, Physician Primary Care Provider [phone] Ken Smith MD Unavailable [phone] Allergies Active Allergy Reactions Criticality Noted Date Comments Gum Goxvbd-Yeqcum-Uaay-Alcohol Blisters High 07/03/2021 Used during Medications vitamins [...] 11/02/2018 01/20/2021 GBS (group B Streptococcus c arrier), +RV culture, currently 10/11/2017 12/06/2017 History of 2 sections 10/01/2017 12/06/2017 Group B streptococcal infect ion during 09/30/2017 10/11/2017 Delivery by section of full-term infant 12/06/2017 39 weeks gestation of 12/06/2017 Surgical History Surgery Date Site/Laterality Comments SECTION x 4 Family History Medical History Relation Name Comments Hypertension Mother Relation Name Status Comments Mother Social History Tobacco Use Types Packs/Day Years [...] often do you attend chur ch or buddhism services? Never 08/08/2022 Do you belong to any clubs o r organizations such as islam groups, unions, fraternal or athletic groups, or [...] staff should administer the PHQ-9) 0 08/08/2022 [facility] - Occupational Stress Questionnaire Answer Date Recorded [...] place to sleep or slept in a detention (including now)? No 08/08/2022 [place] Depression Scale Answer Date Recorded [place] Depression Scale Total 1 06/08/2021 The thought [...] on file Legal Sex Female 10:57 AM FOOD AND BEVERAGE COORDINATOR Gender Identity Not on file Sexual Orientation Not on file Obstetrics History Para Term AB IAB SAB Ectopic Multiple Livin g Live Births 6 6 3 3 0 0 0 0 0 5 5 Date Outcome GA Total Labor Labor/2nd/3rd Weight Sex Type Anes PTL Lucero A1 A5 Name Clin 3 25w 0d F Vag-S pont Demis e 4 33w 0d 1.446 kg (3 lb 3 oz) F CS-Un spec Spinal N Livin g 6 35w 0d 2.58 kg (5 lb 11 oz) M CS-Un spec Spinal N Livin g Complications:None 2017 Term 39w 4d 0h 03m 0h 03m 2.854 kg (6 lb 4.7 oz) M CS-LT ranv Spinal N Livin g 9 9 Kali Cerda MD Complications:None Delivery Location:[facility] ([facility]) 2021 Term 39w 4d 0h 02m 0h 02m 2.79 kg (6 lb 2.4 oz) M CS-LT ranv Spinal N Livin g 8 9 [facility] Josep h Mark, MD Delivery Location[facility] PROCEDURE) 2022 Term 39w 0d 0h 03m 0h 03m 2.588 kg (5 lb 11.3 oz) M C-Sec tion Spinal N Livin g 8 9 [facility], Kali Dominguez MD Complications:None Delivery Location[facility] ([facility] PROCEDURE) Comments 2014 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 Last Filed Vital Signs Vital Sign Reading [...] 10/05/2022 3:32 PM CDT Plan of Treatment Health Maintenance Due Date Last Done Comments Varicella Vaccines (1 of 2 - 13+ 2-dose series) 01/08/2008 Regular Well Visit/Exam 18-64 2013 Depression Screening 06/13/2023 06/12/2022, 06/12/2022, 06/11/2022, Additional history exists Cervical Cancer Screening 10/06/20232022, 01/12/2022, 08/08/2021, Additional history exists Influenza Vaccine (#1) 2024 DTaP/Tdap/Td Vaccine (8 - Td or Tdap) 10/26/2025 10/27/2015, 07/05/2011, 07/03/2001, Additional history exists Hepatitis B Screening Completed 07/22/1997 , 1995, 1995 Hepatitis C Screening Completed 04/12/2022 , 12/19/2020, 09/02/2017 HPV Vaccines Aged Out No longer eligi ble based on patient's age to complete this topic Pneumococcal vaccine <65 Aged Out No longer eligible based on patient's age to complete this topic Procedures Procedure Name Priority Date/Time Associated Diagnosis Comments PAP AND HPV, REFLEX TO HPV GENOTYPES Routine 10/05/2022 3:43 PM CDT Cervical high risk HPV (human papillomavirus) test positive Encounter for visit History of abnormal cervical Pap smear HEPATITIS C ANTIBODY Routine 04/12/2022 11:41 AM FOOD AND BEVERAGE COORDINATOR Encounter for supervision of other normal in first trimester from Last 3 Months or Most Recently Relevant to Health Maintenance Results * (ABNORMAL) Pap and HPV, reflex to HPV Genotypes (10/05/2022 3:43 PM CDT) [facility]: POS CX [facility] Comment:PP Previous Pap [facility] Comment:None given Prev. Bx [facility] Comment:None given SOURCE: [facility] Comment:Cervix, Endocervix Pap, specimen adequacy [facility] Comment: Satisfactory for evaluation. Endocervical/transformation zone component present. Pap, general categorization (A) [facility] Comment:Cytology Results: Ep ithelial Cell Abnormality HPV interp (A) [facility] Comment: Atypical Squamous Cells of Undetermined Significance (ASC-US) Pile Driver Operator Helper [facility] Comment: MMD, CT(ASCP) CT Screening Location: [place] [address] Pathologist [facility] Comment: Danette Brady M.D. Board Certified in Anatomic Pathology, Clinical Pathology and Cytopathology [phone] (electronic signature) Comment [facility] Comment: EXPLANATORY NOTE: The Pap [...] High Risk E6/E7 Detected (A) NOT DETECTED [facility] Comment: Detected One or more High Risk HPV types (16,18,31,33, 35,39,45,51,52,56,58,59,66,68) was detected. Methodology: Real Time PCR Thin prep 10/05/2022 3:43 PM CDT 10/06/2022 5:07 AM CDT Ken Smith MD LAB CYTOLOGY ORDERABLES Fi nal Result Performing Organization Address City/[facility]/ZIP Co de Phone Number [facility] [address] [place] [address] [facility] [address] [place] [address] * Hepatitis C antibody (04/12/2022 11:41 AM FOOD AND BEVERAGE COORDINATOR) Hep C Ab Nonreactive Nonreactive MICHELLE OCONNOR [...] last revised on 2019. Testing performed by: [facility], [address] [place] [address]., [address] Blood 04/12/2022 11:4 1 AM FOOD AND BEVERAGE COORDINATOR 04/12/2022 8:46 PM FOOD AND BEVERAGE COORDINATOR Ken Smith MD LAB MICROBIOLOGY - GENERAL ORDERABLES Edited Result - Final Performing Organization Address City/[facility]/ZIP Co de Phone Number MICHELLE OCONNOR (AREN) 1 [facility] Department [place] [address] from Last 3 Months or Most Recently Relevant to Health Maintenance Insurance [facility]NA [facility] Advance Directives For more information, please contact: [phone] * Full Code (Latest Code Status on [...] 1:46 AM 11/02/2018 8:30 PM Care Teams Medical Case Worker Relationship Specialty Start Date End Date No, Physician PCP - General 12/21/16 Ken Smith MD [address] [place] [address] DR AVALOS [address] [place] [id number] Machine Printer Hose Obstetrics and Gynecology 06/30/21
--- OUTSIDE RECORDS SUMMARY | 2024-09-22 12:29 | XMS_ITS | Clinical Summary ---
Author Organization [facility] Address [address] [place] [address] Phone Care Team Providers Care Berry Picker Machine Operator Name Role Phone Unavailable Primary Care Provider Unavailabl e Allergies No known active allergies Medications hydrOXYzine (ATARAX) 50 MG TabletIndication s:Insomnia, unspecified type Take 1 Tablet by mouth nightly as needed for Sleep. 30 Tablet 1 Active Additional Information Patient not taking.Reported on 01/06/2023 FLUoxetine (PROzac) 20 MG CapsuleIndicatio ns:Anxiety and depression Take 1 Capsule by mouth daily. 30 Capsule 1 1 Active Additional Information Patient not taking.Reported on 01/06/2023 Active Problems Problem Noted Date Diagnosed Date Anxiety and depression 08/08/2020 Depression Anxiety Immunizations Immunization Administration Dates Next Due DTAP VACCINE 07/03/2001,12/30/1997,07/22/1997 DTP-Hib 1995,1995 Hepatitis B Vaccine, Pediatric/adolescent 07/22/1997,1995,1995 Hib Vaccine,unspecified Formulation 08/19/1997 Inactivated Polio Vaccine 07/03/2001 MMR Vaccine 07/03/2001,08/19/1997 OPV 12/30/1997, 8,1995,1995 RHO(D) Immune Globulin- IV Or IM 10/26/2015 TDAP Vaccine 10/27/2015,07/05/2011 Family History Medical History Relation Name Comments No Known Problems Father Hypertension Mother No Known Problems Sister 2 No Known Problems Sister 3 No Known Problems Sister 4 No Known Problems Sister 5 No Known Problems Sister 6 Relation Name Status Comments Father Mother Alive Sister 1 Rashmi Alive Sister 2 Alive Sister 3 Alive Sister 4 Alive Sister 5 Alive Sister 6 Alive Social History Tobacco Use Types Packs/Day Years Used Date Smoking Tobacco: Former Cigarettes Smokeless Tobacco: Never Tobacco Cessation:Counseling Given: Not Answered Comments:vape, occasional Alcohol Use Standard Drinks/Week Comments Never 0 (1 standard drink = 0.6 oz pur e alcohol) AUDIT-C Answer Date Recorded Frequency of Alcohol Consumption Never 11/01/2018 Average Number of Drinks Not on file 019 Frequency of Binge Drinking Not on file 10/16 PHQ-2 Answer Date Recorded Total Score - Questions 1-9 21 07/17 Sexually Active Control Partners Comments Not Currently Male Comments Unknown Sex and Gender Information Value Date Recorded Sex Assigned at Not on file Legal Sex Female 10:48 PM CDT Gender Identity Not on file Sexual Orientation Not on file Last Filed Vital Signs Vital Sign Reading Time Taken Comments Blood Pressure 124/78 01/06/2023 4:23 PM CDT Pulse 111 01/06/2023 4:23 PM CDT Temperature 36.8 C (98.3 F) 01/06/2023 4:23 PM CDT Respiratory Rate 16 01/06/2023 4:23 PM CDT Oxygen Saturation 99% 01/06/2023 4:23 PM CDT Inhaled Oxygen Concentration - - Weight 65.8 kg (145 lb) 10/22/2020 1:18 PM CDT Height 165.1 cm (5' 5) 10/22/2020 1:18 PM CDT Body Mass Index 24.13 10/22/2020 1:18 PM CDT Plan of Treatment Health Maintenance Due Date Last Done Comments Hepatitis C Virus (HCV) Screening 1995 Human Papillomavirus (HPV) Immunization (1 - 3-dose series) 2010 Pap Smear 01/08/2016 SARS-COV-2 Immunization ( season) 2023 Influenza Immunization (#1) 2024 DTaP/Tdap/Td Immunization (8 - Td or Tdap) 10/26/2025 10/27/2015, 07/05/2011, 07/03/2001, Additional history exists Respiratory Syncytial Virus (RSV) Immunization (Adult) (1 - 1-dose 75+ series) 2070 Hepatitis B Immunization Completed 998, 1995, 1995 Meningococcal Immunization (ACWY) Aged Out No longer eligible based on patient's age to complete this topic Pneumococcal Immunization Combined Aged Out No longer eligible based on patient's age to complete this topic Rotavirus Immunization Aged Out No lo nger eligible based on patient's age to complete this topic Goals Goal Patient Goal Type Associated Problems Recent Progress Patient-Stated? Author [facility] On track(2020 3:38 PM CDT) Yes Aye Flynn LCSW Note: someone to talk to about things going on Goal Reviewed with: patient today Readiness to change: Ready to change Department associated with goal: [facility] Steps to achieve goal: will attend psychotherapy/counseling at least twice monthly and self disclose to have an outlet for distressing thoughts and feelings. will identify at least two ways to engage in self expression and to gain relief from distressing emotions and thoughts. will implement one other way, in addition to counseling, to engage in self expression and to gain relief from distressing emotions and thoughts. Behavioral [facility] No change(10/07 7:31 AM CDT) No Aye Flynn LCSW Note: to have reduction of anxiety and depression symptoms. Goal Reviewed with: patient today Readiness to change: Ready to change Department associated with goal: [facility] Steps to achieve goal: to attend, at least twice monthly, counseling sessions. to identify, verbalize and process at least three contributing factors/triggers to anxiety and depression. to identify and verbalize at least three actions/skills to prevent and/or cope with anxiety and depression. to put into action, at least one time weekly, for one month, an action/skill to prevent and or cope with anxiety and depression. Insurance MEDICAID AETNA [facility]
[2024-09-22 12:32] VITALS: BP 136/86; PULSE 81; RESP 16; TEMP 36.9; O2SAT 100
[2024-09-22 12:57] LABS: EDSTREPNEGPOS1 Negative (Negative)
--- NOTE | 2024-09-22 13:04 | ED.URI ---
HPI - URI/Sore Throat General Chief Complaint: Upper Respiratory Infection Stated Complaint: sore throat Time Seen by Provider: 09/22/24 12:45 Source: patient and RN notes reviewed Mode of arrival: ambulatory Limitations: no limitations History of Present Illness HPI Narrative: 29-year-old female presents [facility] complaining of sore throat for approximately 3 days. Patient denies any other upper respiratory symptoms, cough, fever, body aches, chills, chest pain, or difficulty breathing. Patient has tried Tylenol ibuprofen without relief. Patient says the pain is worse the morning. Related Data Home Medications ?Medication ?Instructions ?Recorded ?Confirmed ?Last Taken ?Type No Home Medications 12/26/23 09/22/24 Unknown History Allergies Allergy/AdvReac Type Severity Reaction Status Date / Time No Known Allergies Allergy Verified 09/22/24 12:30 Review of Systems Review of Systems: CONSTITUTIONAL: Denies fever, chills, or sweats. EYES: Denies visual changes, redness, or discharge. ENT: Denies rhinorrhea, congestion, or otalgia. Positive for sore throat. CARDIOVASCULAR: Denies chest pain, palpitations, or edema. RESPIRATORY: Denies cough or dyspnea. GASTROINTESTINAL: Denies abdominal pain, nausea, vomiting, or diarrhea. GENITOURINARY: Denies dysuria or hematuria. SKIN: Denies rash or itching. MUSCULOSKELETAL: Denies back pain, joint pain, or myalgia. NEUROLOGIC: Denies headache, numbness, or weakness. PSYCHIATRIC: Denies anxiety or depression. All other systems reviewed are negative, except as documented in HPI. PMFSH Past Medical History Medical History depression Strep throat Surgical History Surgical History Previous section Social History Social History Smoking status: Never smoker Substance use type: does not use Living arrangements: with family Gender identity (if verbalized by the patient): Female Comments At the time of my signature, I reviewed and agree with the nursing past medical, surgical, social, and family history. There is no relevant family history pertinent to the patient complaint. Exam Narrative: GENERAL: This is a well-nourished, well-developed adult, in no apparent distress. They are non ill-appearing, nontoxic appearing. HEAD: normocephalic, atraumatic. EYES: Sclera clear/white. Conjunctiva normal. Vision is grossly intact. Extraocular movements intact EARS: External ears normal, auditory canals clear and without drainage, TMs normal without perforation. Hearing grossly intact. NOSE: External nose normal with no obvious nasal discharge, nasal turbinates without redness, no rhinorrhea. THROAT: Mucous membranes moist, posterior pharynx erythematous without exudate. Tonsils 2+ erythematous with white patches. Uvula midline. NECK: Neck supple, mild cervical lymphadenopathy, no masses or thyromegaly. CARDIOVASCULAR: Regular rate and rhythm without murmurs, gallops, or rubs. RESPIRATORY: Clear to auscultation. Breath sounds equal bilaterally. No wheezes, rales, or rhonchi. SKIN: warm, Dry, intact with no suspicious lesions or rash, good texture and turgor. NEURO: awake, alert, and oriented to person, place and time. There were no obvious focal neurologic abnormalities. EXTREMITIES: No joint tenderness, effusion, or edema noted. BACK: Nontender without deformity. No CVA tenderness. Course Course Emergency Course: Portions of this record may have been created with voice recognition software Level of Care: Express Care Visit Vital Signs Vital signs: Vital Signs Temperature 98.5 F 09/22/24 12:32 Pulse Rate 81 09/22/24 12:32 Respiratory Rate 16 09/22/24 12:32 Blood Pressure 136/86 09/22/24 12:32 Pulse Oximetry 100 09/22/24 12:32 Oxygen Delivery Room Air 09/22/24 12:32 Temperature 98.5 F 09/22/24 12:32 Pulse Rate 81 09/22/24 12:32 Respiratory Rate 16 09/22/24 12:32 Blood Pressure 136/86 09/22/24 12:32 Pulse Oximetry 100 09/22/24 12:32 Oxygen Delivery Room Air 09/22/24 12:32 Reviewed MDM - URI/Sore Throat MDM Narrative Medical decision making narrative: Rapid strep negative. A throat culture is pending. Likely viral pharyngitis. Discussed physical exam findings. Advised supportive measures and signs/symptoms to go to the ER. Pt is appropriate for outpt treatment and f/u. Differential Diagnosis Differential diagnosis: Likely upper respiratory infection, sinusitis, viral infection and pharyngitis (Strep or viral) Lab Data Attestation: I reviewed the patient's lab results. Labs: Lab Results 09/22/24 Range/Units 12:36 POC Grp A Strep Screen Negative (Negative) Critical Care Time Critical Care Time Critical Care Time: No Discharge Plan Discharge Clinical Impression: Pharyngitis Qualifiers: Pharyngitis/tonsillitis etiology: unspecified etiology Qualified Code(s): J02.9 - Acute pharyngitis, unspecified Patient Disposition: Home Condition: Stable Instructions: Pharyngitis (ED) Additional Instructions: Your rapid strep swab was negative today at [facility]. You will be notified in a few days if the culture comes back positive for strep, and appropriate antibiotics will be called in for you at that time. Your symptoms are likely due to a viral illness, which is not treated with antibiotics. Viral symptoms can be present for up to 10-14 days. Take Tylenol or ibuprofen for fever or pain. You may also use throat lozenges or cough drops, salt water rinses, or warm peppermint tea to help with your sore throat. Rest and stay hydrated. Follow up with your PCP in 3-5 days if symptoms are not improving. Go to the ER immediately if you develop difficulty breathing or swallowing Patient Language: Afghan Prescriptions: No Action No Home Medications Follow-up/Referrals: PHYSICIAN,RESCUE BOAT OPERATOR [Primary Care Provider] - Time of Disposition: 12:54
== END 2024-09-22 12:55 | disposition home or self-care (01) ==
DX: J02.9 Acute pharyngitis, unspecified (principal)
CPT/HCPCS: 87081; 87880; 99212; G0463